=== PATIENT | male | born 1995 | race Hispanic/Latino ===

== ENCOUNTER 2017-10-21 21:03 | Emergency (ER) | payer SELFPAY ==
[2017-10-21 21:13] VITALS: BP 131/86
[2017-10-21 21:37] LABS: Basophils # (Auto) 0.1 K/mm3 (0.0-0.1); Basophils % (Auto) 1.3 % (0.0-1.8); Eosinophils # (Auto) 0.5 K/mm3 (0.0-0.4); Eosinophils % (Auto) 4.5 % (0.0-4.3); Hematocrit 38.5 % (35.5-45.6); Hemoglobin 12.9 gm/dl (11.8-15.2); Lymphocytes # (Auto) 2.9 K/mm3 (1.2-5.4); Mean Corpuscular HGB Conc 34 % (32-34); Mean Corpuscular Hemoglobin 31 pg (28-32); Mean Corpuscular Volume 92 fl (84-94); Monocytes # (Auto) 1.2 K/mm3 (0.0-0.8); Monocytes % (Auto) 11.1 % (0.0-7.3); Platelet Count 319 K/mm3 (140-440); Red Cell Distribution Width 13.6 % (13.2-15.2)
[2017-10-21 21:38] LABS: BUN/Creatinine Ratio 15; Blood Urea Nitrogen 12 mg/dL (9-20); Calcium 9.2 mg/dL (8.4-10.2); Hemolysis Index 12
[2017-10-21 21:46] LABS: Bilirubin,Urine NEG (Negative); Blood,Urine NEG (Negative); Color,Urine Yellow (Yellow); Mucus,Urine FEW /HPF; Protein,Urine <15 mg/dL mg/dL (Negative); Urobilinogen,Urine < 2.0 mg/dL (<2.0)
[2017-10-21 21:51] LABS: Amphetamine Screen,Urine PRESUMPTIVE NEGATIVE; Benzodiazepines Screen,Urine PRESUMPTIVE NEGATIVE; Cannabinoid Screen,Urine PRESUMPTIVE NEGATIVE; Cocaine Screen,Urine PRESUMPTIVE NEGATIVE; Methadone Screen,Urine PRESUMPTIVE NEGATIVE; Opiate Screen,Urine PRESUMPTIVE NEGATIVE
== END 2017-10-21 22:56 | disposition left against medical advice (07) ==
LOC: ED 21:03
DX: Z02.89 Encounter for other administrative examinations (principal); Z53.21 Procedure and treatment not carried out due to patient leaving prior to being seen by health care provider
CPT/HCPCS: 36415; 80048; 80307; 81001; 85025; G0480; 80320

== ENCOUNTER 2017-10-22 09:00 | Emergency (ER) | payer OTHER ==
[2017-10-22] MEDS ORDERED: TORADOL IM ONE (09:35)
--- NOTE | 2017-10-22 09:38 | Emergency Department Report ---
Chief Complaint: Pain General Stated Complaint: FLU LIKE SYMPTOMS Time Seen by Provider: 10/22/17 09:30 - HPI History of Present Illness: 22-year-old male presents to the emergency department with complaint of pain to the left collar bone and shoulder. He has a history of previously fracturing the left clavicle and subsequent surgical repair in 2011. Last night , while he was sleeping, he thinks he rolled out of bed and onto that left side. Since then he has been having pain to this area with decreased range of motion secondary to pain. He has not taken anything for her symptoms prior to presentation. Otherwise no past medical history. He does not have a primary care physician. - ROS Review of Systems: Positive for left shoulder and clavicular pain. Negative for fever, nausea or vomiting, shortness of breath - Exam Vital Signs: Vital Signs 10/22/17 09:05 Temperature 98.4 F Pulse Rate 97 H Respiratory 18 Rate Blood Pressure 132/76 O2 Sat by Pulse 98 Oximetry Physical Exam: Heart sounds normal to auscultation. He is tender to palpation along the left clavicle, left trapezius, left shoulder. The left clavicle does appear raised but not tenting and there is a previous surgical scar that is old. MSE screening note: Focused history and physical exam performed. Due to findings the following was ordered: He will have an x-ray of the left shoulder and the left clavicle. He will be started off with some Toradol IM for discomfort. ED Disposition for MSE Condition: Stable
--- NOTE | 2017-10-22 10:21 | XRay Report ---
LEFT SHOULDER, 3 VIEWS LEFT CLAVICLE, 2 VIEWS History: Left shoulder pain, left clavicle pain. There is been previous internal fixation of the left clavicle with metal plate and screws. No evidence for acute fracture, dislocation, ligamentous injury or degenerative changes. The soft tissues are within normal limits. IMPRESSION: Previous internal fixation of the left clavicle. No acute process is noted.
--- NOTE | 2017-10-22 11:04 | Emergency Department Report ---
ED Upper Extremity Inj HPI - General Chief Complaint: Pain General Stated Complaint: Right shoulder pain Time Seen by Provider: 10/22/17 09:30 Source: patient Mode of arrival: Ambulatory Limitations: No Limitations - History of Present Illness Initial Comments: This is a 22-year-old male that presents with pain to left clavicle area that started about 5-6 hours ago. Patient reports taking Xanax prior to laying down to sleep. He was sleeping on an air mattress while smoking a cigarette. He think he dosed off to sleep in the cigarette fell out of his hand. The air mattress began to deflate and he rolled to the floor impacted left shoulder and arm. He felt fine initially. He started walking to [facility] and felt pain 9/10 on pain scale to left clavicle area with decrease in ROM. Denies swelling, redness, and numbness/tingling. Complaint: Injury to:: left, shoulder (clavicle area) -: hour(s) (2-3 hours) Other Extremity Injury: Shoulder: Left (clavicle area) Other Injuries: none Handedness: right Place: home Severity scale (0 -10): 8 Improves With: none Worsens With: movement of extremity Context: fall Associated Symptoms: denies other symptoms - Related Data Previous Rx's Medication Instructions Recorded Last Taken Type Ibuprofen 800 mg PO TID PRN #20 tablet 10/22/17 Unknown Rx Allergies Allergy/AdvReac Type Severity Reaction Status Date / Time No Known Allergies Allergy Verified 10/22/17 09:05 ED Review of Systems ROS: Stated complaint: FLU LIKE SYMPTOMS Other details as noted in HPI Constitutional: denies: chills, fever Respiratory: denies: cough, shortness of breath, wheezing Cardiovascular: denies: chest pain, palpitations Gastrointestinal: denies: abdominal pain, nausea, diarrhea Musculoskeletal: arthralgia (neck pain with ROM, left clavicle and shoulder pain with dereased ROM). denies: back pain, joint swelling Neurological: denies: headache, weakness, numbness, paresthesias Psychiatric: denies: anxiety, depression ED Past Medical Hx - Past Medical History Previous Medical History?: No - Surgical History Additional Surgical History: clavicle - Social History Smoking Status: Current Every Day Smoker Substance Use Type: Alcohol - Medications Home Medications: Home Medications Medication Instructions Recorded Confirmed Last Taken Type Ibuprofen 800 mg PO TID PRN #20 tablet 10/22/17 Unknown Rx ED Physical Exam - General Limitations: No Limitations General appearance: alert, in no apparent distress - Neck Neck exam: Present: tenderness (left trapezius), full ROM. Absent: lymphadenopathy - Respiratory Respiratory exam: Present: normal lung sounds bilaterally. Absent: respiratory distress, wheezes, rales, rhonchi, stridor, accessory muscle use - Cardiovascular Cardiovascular Exam: Present: regular rate, normal rhythm, normal heart sounds. Absent: systolic murmur, diastolic murmur, rubs, gallop - GI/Abdominal GI/Abdominal exam: Present: soft, normal bowel sounds. Absent: distended, tenderness, guarding, rebound, rigid, organomegaly, mass - Extremities Exam Extremities exam: Present: normal inspection, normal capillary refill - Expanded Upper Extremity Exam Left Shoulder Exam: Present: tenderness (tenderness on palpation along clavicle), deformity (clavicle is raised, previous healed surgical scar, w/o erythma or abrasion), other. Absent: swelling, abrasion, laceration, ecchymosis, crepidus , dislocation, erythema, tenderness over AC joint Upper Arm exam: Present: normal inspection, full ROM Elbow exam: Present: normal inspection, full ROM Forearm Wrist exam: Present: normal inspection, full ROM Hand Wrist exam: Present: normal inspection, full ROM Neuro motor exam: Present: wrist extension intact, fingers 2-5 abduction intact Neurosensory exam: Present: radial nerve intact, ulnar nerve intact Vascular: Present: normal capillary refill, radial pulse (+2) - Neurological Exam Neurological exam: Present: alert, oriented X3, normal gait - Psychiatric Psychiatric exam: Present: normal affect, normal mood - Skin Skin exam: Present: warm, dry, intact, normal color. Absent: rash ED Course Vital Signs 10/22/17 09:05 Temperature 98.4 F Pulse Rate 97 H Respiratory 18 Rate Blood Pressure 132/76 O2 Sat by Pulse 98 Oximetry ED Medical Decision Making - Radiology Data Radiology results: report reviewed XR left shoulder: Previous internal fixation of the left clavicle. No acute process is noted. - Medical Decision Making This is a 22 y.o. male presents with neck and left clavicle pain that started hours ago. Patient was examined by me and Dr. Murphy. XR of left shoulder obtained and read by radiologist. Previous internal fixation of the left clavicle. No acute process is noted. Physical findings susceptible of muscle strain of left trapezius muscles and clavicle. Patient informed of results. Plan discussed with patient to discharge home and treat outpatient with ibuprofen for pain. Follow up with Orthopedic Surgery at [place]. Patient discharged home in stable condition. Follow up with PCP in 2-3 days. Critical care attestation.: If time is entered above; I have spent that time in minutes in the direct care of this critically ill patient, excluding procedure time. ED Disposition Clinical Impression: Clavicle pain Trapezius muscle strain Qualifiers: Encounter type: initial encounter Laterality: left Qualified Code(s): S46.812A - Strain of other muscles, fascia and tendons at shoulder and upper arm level, left arm, initial encounter Disposition: TO HOME OR SELFCARE Is pt being admited?: No Does the pt Need Aspirin: No Condition: Stable Instructions: Muscle Strain (ED) Additional Instructions: Patient is medically cleared to return to work today. Use ice or heat on affected area for 20 minutes and off for 2 hours. Take pain medication as needed for pain. Follow up with Primary Care Provider in 2-3 days. Prescriptions: Ibuprofen 800 mg PO TID PRN #20 tablet PRN Reason: Pain Referrals: [facility] [Provider Group] - 3-5 Days PIERRE MONTGOMERY MD [Staff Physician] - 3-5 Days Forms: Work/School Release Form(ED) Time of Disposition: 11:17 Print Language: UPPER SORBIAN
[2017-10-22 11:28] VITALS: BP 128/76
== END 2017-10-22 11:26 | disposition home or self-care (01) ==
LOC: ED 09:00
DX: S46.912A Strain of unspecified muscle, fascia and tendon at shoulder and upper arm level, left arm, initial encounter (principal); X58.XXXA Exposure to other specified factors, initial encounter; Y93.89 Activity, other specified; Y92.89 Other specified places as the place of occurrence of the external cause; Y99.8 Other external cause status
CPT/HCPCS: 73000; 73030; 99283; J1885